=== PATIENT | male | born 1960 | race Caucasian/White ===

== ENCOUNTER 2022-02-16 09:25 | Outpatient (RCR) | payer OTHER, SELFPAY | END 2022-07-13 13:59 | disposition home or self-care (01) | PROVIDERS: PCP Internal Medicine; Visit Provider Internal Medicine | DX: M25.562 Pain in left knee (principal); Z51.89 Encounter for other specified aftercare | CPT/HCPCS: 97110; 97162 ==

== ENCOUNTER 2022-06-10 09:14 | Outpatient (CLI) | payer OTHER, SELFPAY ==
[2022-06-10 10:00] LABS: Chloride* 102 mmol/L (96-114); Potassium* 3.7 mmol/L (3.6-5.1); Sodium* 140 mmol/L (135-149)
[2022-06-10 10:02] LABS: Cholesterol* 176 mg/dL (90-199)
[2022-06-10 10:03] LABS: Blood Urea Nitrogen* 23 mg/dL (7-30); Carbon Dioxide* 29 mmol/L (20-32); Creatinine* 1.4 mg/dL (0.5-1.5); Estimated Glomerular Filt Rate 57 ml/min; Glucose* 108 mg/dL (60-115)
[2022-06-10 10:04] LABS: Calcium* 9.5 mg/dL (8.4-10.6); HDL Cholesterol* 37 mg/dL (>=40); LDL Cholesterol Calculated 90 mg/dL (<100); Triglycerides* 246 mg/dL (40-149); Uric Acid* 9.4 mg/dL (2.2-8.4)
== END 2022-06-10 09:15 | disposition home or self-care (01) ==
PROVIDERS: PCP Internal Medicine; Visit Provider Internal Medicine
DX: M10.9 Gout, unspecified (principal); E66.01 Morbid (severe) obesity due to excess calories; E78.1 Pure hyperglyceridemia; R73.03 Prediabetes; I10 Essential (primary) hypertension
CPT/HCPCS: 80048; 80061; 84550

== ENCOUNTER 2023-06-15 07:45 | Outpatient (CLI) | payer OTHER, SELFPAY | END 2023-06-15 07:46 | disposition home or self-care (01) | LOC: NFLDREF 22:27 | PROVIDERS: PCP Internal Medicine; Referring Provider Internal Medicine; Visit Provider Internal Medicine | DX: E78.1 Pure hyperglyceridemia (principal); I10 Essential (primary) hypertension; R73.03 Prediabetes; M10.9 Gout, unspecified | CPT/HCPCS: 80048; 80061; 84550 ==

== ENCOUNTER 2023-11-13 09:11 | Outpatient (CLI) | payer OTHER, SELFPAY ==
--- OUTSIDE RECORDS SUMMARY | 2023-11-13 09:13 | XMS_ITS | Clinical Summary ---
Author Name Unknown Organization [facility] Address [address] [place] [address] Care Team Providers Care Aircraft Machinist Name Role Phone Unavailable Primary Care Provider Unavailabl e Source Comments Patient records contain information from all sites at [facility]. For routine questions regarding patient records, call [phone] during business hours, M-F 8:00 AM - 5:00 PM Central Time. Record requests for emergency care only can be directed to [phone] at any time.[facility] Allergies No known active allergies Medications Medication Sig Dispensed Refills Start Date End Date Status amoxicillin (AMOXIL) 500 mg capsule Take 500 mg by mouth daily. Takes 1 tablet daily for three days when having gout outbreak 0 10/06/2021 Active chlorthalidone (HYGROTON) 25 mg tablet Take 25 mg by mouth daily. 0 08/29/2021 Active colchicine (COLCRYS) 0.6 mg capsule capsule Take 0.6 mg by mouth 2 (two) times a day. 0 09/08/2021 Active HYDROcodone-acetamino phen (NORCO) 5-325 mg per tablet Take 1 tablet by mouth every 6 (six) hours as needed. for pain 0 10/06/2021 Active losartan (COZAAR) 100 mg tablet Take 100 mg by mouth daily. 0 08/29/2021 Active pantoprazole (PROTONIX) 40 mg EC tablet Take 40 mg by mouth daily. 0 11/16/2021 Active sildenafiL (VIAGRA) 100 mg tablet Take 100 mg by mouth as needed. 0 11/11/2021 Active Social History Tobacco Use Types Packs/Day Years Used Date Smoking Tobacco: Never Smokeless Tobacco: Never Nutrition Answer Date Recorded Nutrition: EVOO Fat Source Unknown 08/23 Nutrition: Servings of Fruits/Vegetables per Day Not on file 08/23/2021 Dental Answer Date Recorded Dental: Regular Dentist Unknown 08/23/19 Sex and Gender Information Value Date Recorded Sex Assigned at Not on file Gender Identity Not on file Sexual Orientation Not on file Plan of Treatment Health Maintenance Due Date Last Done Comments CT Colonography 1960 Cologuard 1960 Colonoscopy 1960 Colorectal Cancer Screening 1960 Creatinine Level (Kidney Function Test) 1960 FIT 1960 Fasting Glucose for Diabetes Screening 1960 HIV Screening 1960 Hepatitis C Screening 1960 Lipid (Cholesterol) Screening 1960 Potassium Level 1960 Sodium Level 1960 COVID-19 Vaccine (2 - 2022- season) 2023 10/30/2020 Depression Screening (Annual PHQ-2) 08/07/2023 DTaP,Tdap,and Td Vaccines (2 - Td or Tdap) 12/24/2024 12/24/2014, 04/06/2005 Zoster Vaccines Completed 05/25/2020, 09/10/2019 Influenza Vaccine Completed 06/22/2023, , 05/17/2021, Additional history exists Pneumococcal vaccine (0-64 years) Aged Out No longer eligible based on patient's age to complete this topic [id number] [facility] [place] [address]
--- OUTSIDE RECORDS SUMMARY | 2023-11-13 09:13 | XMS_ITS ---
Author Name Unknown Organization [facility] Address [address] [place] [address] Care Team Providers Care Communications Tower Technician Name Role Phone Unavailable Unavailable Unavailable Surgery Details Not on file Complications Check Surgery Details section. Procedure Estimated Blood Loss Check Surgery Details section. Procedure Findings Check Surgery Details section. Procedure Specimens Taken Check Surgery Details section.
--- OUTSIDE RECORDS SUMMARY | 2023-11-13 09:13 | XMS_ITS | Referral Summary ---
Author Name Unknown Organization [facility] Address [address] [place] [address] Care Team Providers Care Medical Instrument Technician Name Role Phone Unavailable Primary Care Provider Unavailabl e Source Comments Patient records contain information from all sites at [facility]. For routine questions regarding patient records, call [phone] during business hours, M-F 8:00 AM - 5:00 PM Central Time. Record requests for emergency care only can be directed to [phone] at any time.[facility] Allergies No known active allergies Medications Medication [...] Orientation Not on file [place] [address]
--- OUTSIDE RECORDS SUMMARY | 2023-11-13 09:13 | XMS_ITS | Clinical Summary ---
Author Name Unknown Organization [facility] Address [place], [place] [address] Care Team Providers Care Software Support Technician Name Role Phone Pcp, No Primary Care Provider Unavailabl e Allergies No known active allergies Medications Medication Sig Dispensed Refills Start Date End Date Status indomethacin (INDOCIN) 50 mg capsule Take 1 capsule by mouth 3 times daily with meals. 21 capsule 0 02/23/2012 Active allopurinol (ZYLOPRIM) 100 mg tabletIndications:Gou t, unspecified Take 1 tablet by mouth once daily. 90 tablet 3 12/17/2012 Active losartan (COZAAR) 100 mg tablet Take 1 tablet by mouth once daily. 30 tablet 5 01/28/2013 Active chlorthalidone (HYGROTON) 25 mg tablet Take 1 tablet by mouth once daily. 30 tablet 5 02/15/2013 Active NEXIUM 40 mg capsule TAKE ONE CAPSULE DAILY 90 capsule 0 01/14/2014 Active aspirin (ECOTRIN) 81 mg enteric coated tablet Take 1 tablet by mouth once daily with a meal. To prevent stroke and heart attack. 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 Gout, unspecified 04/06/2011 Achilles bursitis or tendinitis 02/16/2009 Immunizations Name Administration Dates Next Due AMB Influenza, IIV4 PF (=>6 mos Flulaval,Fluzone Fluarix)(Flu Clinic Only) 04/30/2018 Tdap 04/06/2005 Social History Tobacco Use Types Packs/Day Years Used Date Smoking Tobacco: Never Smokeless Tobacco: Never Tobacco Cessation:Counseling Given: No Alcohol Use Standard Drinks/Week Comments Yes 0 (1 standard drink = 0.6 oz pur e alcohol) rare Sex and Gender Information Value Date Recorded Sex Assigned at Not on file Gender Identity Not on file Sexual Orientation Not on file Obstetrics History Last Filed Vital Signs Vital Sign Reading Time Taken Comments Blood Pressure 120/82 03/28/2016 11:29 AM CDT Pulse 100 03/28/2016 11:41 AM CDT post exercise Temperature 36.5 ??C (97.7 ??F) 01/28/2013 3:00 PM CD T Respiratory Rate 16 11/18/2008 3:45 PM CDT Oxygen Saturation 97% 01/28/2013 3:00 PM CDT Inhaled Oxygen Concentration - - Weight 122 kg (269 lb) 03/28/2016 11:29 AM CDT Height 181.6 cm (5' 11.5) 03/28/2016 1 1:29 AM CDT Body Mass Index 37 03/28/2016 11:29 AM CDT Plan of Treatment Health Maintenance Due Date Last Done Comments Depression screening for age 12+ 1972 HIV for age 15-65 1975 Hepatitis C screening for ag e 18-79 1978 Colonoscopy through age 75 2005 Zoster (shingles) series for age 50+ (1 of 2) 2010 Lipids for age 45-75 04/06/2016 04/06/2011, 07/13/2006 BMI (ht and wt on same day) for age 18+ 03/28/2017 03/28/2016 Tetanus booster 04/06/2021 04/06/2011 (Declined), 04/06/2005 COVID-19 vaccine series ( season) 2023 10/30/2020 Influenza for age 50-64 04/07/2024 04/30/2018 Tdap Completed 04/06/2005 Pneumococcal series for age 6-64 Aged Out No longer eligible b ased on patient's age to complete this topic Procedures Procedure Name Priority Date/Time Associated Diagnosis Comments LIPID PANEL W REFLEX MEASURED LDL Routine 04/06/2011 8:48 AM CDT Screening for ischemic heart disease from Last 3 Months or Most Recently Relevant to Health Maintenance Results * (ABNORMAL) LIPID PANEL W REFLEX MEASURED LDL (04/06/2011 8:48 AM CDT) CHOLESTEROL,TOTAL 172 110 - 199 mg/dL [facility] TRIGLYCERIDES 159(H) <150 mg/dL [facility] HDL CHOLESTEROL 36(L) >40 mg/dL [facility] CHOL/HDL RATIO 4.78(H) <4.51 [facility] LDL CHOLESTEROL 104 <131 mg/dL [facility] PATIENT STATUS Fasting [facility] Blood specimen (specimen) BLOOD SPECIMEN / Unknown 04/06/2011 8:48 AM CDT 04/06/2011 8:42 AM CDT Parrish Hale MD CHEMISTRY 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 PCP - General 12/28/20
--- NOTE | 2023-11-13 10:29 | W.ANESCHARGE ---
Anesthesia Charges Start Date/Time Anesthesia Start Date: 11/13/23 Anesthesia Start Time: 11:05 Stop Date/Time Anesthesia Stop Date: 11/13/23 Anesthesia Stop Time: 11:30
--- NOTE | 2023-11-13 11:32 | W.ANESCHARGE ---
Anesthesia Charges Start Date/Time Anesthesia Start Date: 11/13/23 Anesthesia Start Time: 11:05 Stop Date/Time Anesthesia Stop Date: 11/13/23 Anesthesia Stop Time: 11:30
== END 2023-11-13 09:12 | disposition home or self-care (01) ==
LOC: OP CLINIC 09:11
PROVIDERS: PCP Internal Medicine; Visit Provider Surgery
DX: R19.8 Other specified symptoms and signs involving the digestive system and abdomen (principal); K44.9 Diaphragmatic hernia without obstruction or gangrene; K31.7 Polyp of stomach and duodenum
CPT/HCPCS: 00731; 43239; 88305; J2704

== ENCOUNTER 2024-03-19 08:00 | Outpatient (RCR) | payer OTHER, SELFPAY | END 2024-06-06 07:39 | disposition home or self-care (01) | PROVIDERS: PCP Internal Medicine; Visit Provider Internal Medicine | DX: M54.50 Low back pain, unspecified (principal); R53.1 Weakness; Z51.89 Encounter for other specified aftercare | CPT/HCPCS: 97110; 97140; 97161 ==

== ENCOUNTER 2024-08-27 07:43 | Outpatient (CLI) | payer OTHER, SELFPAY | END 2024-08-27 07:44 | disposition home or self-care (01) | LOC: NFLDREF 08-28 00:50 | PROVIDERS: PCP Internal Medicine; Referring Provider Internal Medicine; Visit Provider Internal Medicine | DX: E78.1 Pure hyperglyceridemia (principal); R73.03 Prediabetes; M10.9 Gout, unspecified; I10 Essential (primary) hypertension; Z12.5 Encounter for screening for malignant neoplasm of prostate | CPT/HCPCS: 80048; 80061; 84550; G0103 ==